=== PATIENT | male | born 1990 ===

== ENCOUNTER 2020-11-11 15:08 | Emergency (ER) | payer MEDICAID ==
[~2020-11-11] VITALS: Ht 188 cm; Wt 60.7 kg
[2020-11-11] MEDS ORDERED: DIPH,PERTUSS(ACELL),TET VAC/PF 0.5 ML IM-VACC ONE ×2 (16:00→16:23)
[2020-11-11 16:05] LABS: BASOPHILS % (AUTO) 0 % (0-1); EOSINOPHILS % (AUTO) 0 % (1-7); LYMPHOCYTES % (AUTO) 14 % (22-44); MEAN CORPUSCULAR HEMOGLOBIN 32.5 pg (27.5-34.5); MEAN CORPUSCULAR HGB CONC 34.4 g/dL (33.2-36.2); MEAN PLATELET VOLUME 7.9 fL (7.4-10.4); MONOCYTES % (AUTO) 6 % (2-9); NEUTROPHILS % (AUTO) 79 % (42-75); PLATELET COUNT 256 x10^3/uL (130-400); RED BLOOD COUNT 4.84 x10^6/uL (4.38-5.82)
[2020-11-11] MEDS ORDERED: BACITRACIN ZINC OINT 500U/GM, 0.9 GM ONE (16:08)
--- NOTE | 2020-11-11 16:10 | NUR ---
PT IN [facility] GOWN. PT IN CT AT THIS TIME.
[2020-11-11 16:17] LABS: ALANINE AMINOTRANSFERASE 25 U/L (12-78); ALBUMIN 4.2 g/dL (3.4-5.0); CALCIUM 8.6 mg/dL (8.5-10.1); CHLORIDE 108 mmol/L (98-107); CREATININE 0.96 mg/dL (0.7-1.3); SALICYLATE LEVEL 4.9 mg/dL (2.8-20.0)
[2020-11-11 16:30] LABS: ALKALINE PHOSPHATASE 80 U/L (45-117); ANION GAP 5 mmol/L (5-15); BILIRUBIN,TOTAL 0.6 mg/dL (0.2-1.0); TOTAL PROTEIN 7.4 g/dL (6.4-8.2)
[2020-11-11 16:50] LABS: AMPHETAMINE SCREEN, URINE Negative (Negative); BARBITURATE SCREEN, URINE Negative (Negative); BENZODIAZEPINE SCREEN, URINE Negative (Negative); CANNABINOID SCREEN, URINE Positive (Negative); COCAINE SCREEN, URINE Negative (Negative); METHADONE SCREEN, URINE Negative (Negative); OPIATE SCREEN, URINE Negative (Negative)
--- NOTE | 2020-11-11 17:00 | NUR ---
pt belongings placed in clothing locker. pt cooperative at this time, resting in bed. pt provided socks. will continue to monitor.
[2020-11-11] MEDS ORDERED: MELA5TAB14 PO (18:26)
[2020-11-11] MEDS ORDERED: LISI-170 PO (18:26)
[2020-11-11] MEDS ORDERED: BUSP30TA PO (18:26)
[2020-11-11] MEDS ORDERED: OXCA600T10 PO (18:26)
[2020-11-11] MEDS ORDERED: IBUP-1223 PO (18:26)
[2020-11-11] MEDS ORDERED: TRAZ-175 PO (18:26)
[2020-11-11] MEDS ORDERED: GABA600T7 PO (18:26)
[2020-11-11] MEDS ORDERED: ASPI-963 PO (18:26)
[2020-11-11] MEDS ORDERED: OLANZAPINE ODT 10MG ONE (18:32)
--- NOTE | 2020-11-11 18:58 | NUR ---
pt walked out of room, stated no one is doing anything for him. pt assisted back to his room. pt started yelling at staff, stating, "get the fuck out of my face". security called. pt yelling at security making more verbal threats. security placed pt in bed and initiated restraints.
[2020-11-11] MEDS ORDERED: LORazepam 2 MG/ML, 1ML IM ONE (19:00)
--- NOTE | 2020-11-11 19:15 | NUR ---
restraints removed. pt resting calmly at this time.
--- NOTE | 2020-11-11 19:23 | NUR ---
ASSUMED CARE OF PATIENT. REPORT GIVEN FROM HOLDEN GRIFFITHS. PT IS OUT OF RESTRAINTS. VS STABLE. PT GIVEN A PILLOW. SITTER AT DOOR. WILL CONTINUE TO MONITOR.
--- NOTE | 2020-11-11 19:29 | NUR ---
REPORT GIVEN TO HOLDEN HYLTON FOR BREAK.
[2020-11-11] MEDS ORDERED: NICOTINE 14MG/24 HR PATCH.TD24 ONE (19:52)
[2020-11-11] MEDS ORDERED: NICOTINE 14MG/24 HR PATCH.TD24 TD ONE (20:00)
--- NOTE | 2020-11-11 20:34 | NUR ---
SPLINT ON. VS STABLE. PT RESTING IN ROOM. SITTER AT DOOR. PT CALM. WILL CONTINUE TO MONITOR.
--- NOTE | 2020-11-11 21:20 | NUR ---
PT RESTING IN ROOM. NO ACUTE DISTRESS. SITTER AT DOOR. WILL CONTINUE TO MONITOR.
--- NOTE | 2020-11-11 22:48 | NUR ---
PT RESTING IN ROOM. NO ACUTE DISTRESS NOTED. SITTER AT DOOR. WILL CONTINUE TO MONITOR.
--- NOTE | 2020-11-11 23:38 | NUR ---
PT RESTING IN ROOM. NO ACUTE DISTRESS NOTED. SITTER AT DOOR. WILL CONTINUE TO MONITOR.
--- NOTE | 2020-11-11 23:40 | NUR ---
TP RN: per [facility] RN juan luis, pt not answering assessment questions and they want to reassess pt in 4 hours. packet faxed to [facility], [facility], [facility], [facility]
--- NOTE | 2020-11-12 00:18 | NUR ---
PT RESTING IN ROOM. NO ACUTE DISTRESS NOTED. SITTER AT DOOR. WILL CONTINUE TO MONITOR.
[2020-11-12 00:45] VITALS: BP 104/75
--- NOTE | 2020-11-12 01:33 | NUR ---
REPORT FROM [facility] TRANSFER OF CARE
--- NOTE | 2020-11-12 01:34 | NUR ---
REPORT GIVEN TO HOLDEN GONZALEZ
--- NOTE | 2020-11-12 01:39 | NUR ---
[facility] ([facility]) ACCEPTING
--- NOTE | 2020-11-12 02:06 | NUR ---
PER [facility] AT [facility] PT ABLE TO TRANSFER SOON EMS IS AVAILABLE TO TRANSPORT
--- NOTE | 2020-11-12 02:54 | NUR ---
[facility] AT [facility] TRANSPORT
[2020-11-12] MEDS ORDERED: OLANZAPINE ODT 10MG PO SCH (09:00)
== END 2020-11-12 03:01 ==
LOC: ED 18:56
DX: S62.344A Nondisplaced fracture of base of fourth metacarpal bone, right hand, initial encounter for closed fracture (principal); S62.346A Nondisplaced fracture of base of fifth metacarpal bone, right hand, initial encounter for closed fracture; S09.90XA Unspecified injury of head, initial encounter; S00.212A Abrasion of left eyelid and periocular area, initial encounter; M54.2 Cervicalgia; R45.851 Suicidal ideations; F17.210 Nicotine dependence, cigarettes, uncomplicated; F15.10 Other stimulant abuse, uncomplicated; Y04.8XXA Assault by other bodily force, initial encounter; Y93.89 Activity, other specified; Y92.410 Unspecified street and highway as the place of occurrence of the external cause; Y99.8 Other external cause status
CPT/HCPCS: 29125; 36415; 70450; 72125; 73130; 80053; 80299; 80307; 80320; 84443; 85025; 90471; 90715; 96372; 99285; J2060; 80329; G0480